=== PATIENT | female | born 1970 | race Two or more races ===

== ENCOUNTER 2020-10-11 14:47 | Emergency (ER) | payer BC, OTHER ==
[~2020-10-11] VITALS: Ht 160 cm; Wt 71.7 kg
[2020-10-11 14:49] VITALS: BP 134/62
== END 2020-10-11 16:25 | disposition home or self-care (01) ==
LOC: ER 14:47
DX: N39.0 Urinary tract infection, site not specified (principal); N89.8 Other specified noninflammatory disorders of vagina
CPT/HCPCS: 81002

== ENCOUNTER → 2020-11-28 | Outpatient (CLI) | payer BC ==
[2020-11-28 10:42] LABS: Follicle Stimulating Hormone 3.62 IU/L (SEE BELOW)
== END | disposition home or self-care (01) ==
LOC: LAB 08:38
PROVIDERS: ATTEND Obstetrics & Gynecology
DX: N95.1 Menopausal and female climacteric states (principal)
CPT/HCPCS: 36415; 82670; 83001; 83002; 84403; 84443

== ENCOUNTER → 2020-12-19 | Outpatient (CLI) | payer BC | END | disposition home or self-care (01) | LOC: LAB 08:51 | PROVIDERS: ATTEND Obstetrics & Gynecology | DX: N83.209 Unspecified ovarian cyst, unspecified side (principal) | CPT/HCPCS: 86304 ==